=== PATIENT | male | born 1995 | race Caucasian/White ===

== ENCOUNTER 2023-02-04 00:09 | Emergency (ER) | payer BC ==
[~2023-02-04] VITALS: Ht 177.8 cm; Wt 81.6 kg
[2023-02-04 01:09] VITALS: BP 126/76; TEMP 98.7; O2SAT 97
[2023-02-04] MEDS ORDERED: SULF1TAB48 PO (01:20)
[2023-02-04] MEDS ORDERED: CEPH500C2 PO (01:20)
[2023-02-04] MEDS ORDERED: IBUP-1953 PO (01:20)
[2023-02-04] MEDS ORDERED: IBUPROFEN 600 MG TABLET ONE (01:26)
[2023-02-04] MEDS ORDERED: CEPHALEXIN MONOHYDRATE 500 MG CAPSULE PO ONE ×2 (01:26→01:30)
[2023-02-04] MEDS ORDERED: SULFAMETH/TRIMETH 800/160 MG 1 UDTAB TABLET ONE (01:26)
[2023-02-04] MEDS ORDERED: SULFAMETH/TRIMETH 800/160 MG 1 UDTAB TABLET PO ONE (01:30)
[2023-02-04] MEDS ORDERED: IBUPROFEN 600 MG TABLET PO ONE (01:30)
== END 2023-02-04 01:34 | disposition home or self-care (01) ==
LOC: EDUNIT# 00:09 → ER 00:17
DX: L03.314 Cellulitis of groin (principal); F17.200 Nicotine dependence, unspecified, uncomplicated; Z88.5 Allergy status to narcotic agent